=== PATIENT | male | born 1970 | race African-American/Black ===

== ENCOUNTER 2019-11-10 03:00 | Observation (INO) ==
[2019-11-10] MEDS ORDERED: ALUM/MAG/SIMETH/LIDO VISC 1:1 30 ML BOTTLE PO STA (03:15)
[2019-11-10] MEDS ORDERED: PANTOPRAZOLE 40 MG VIAL IV STA (03:15)
[2019-11-10] MEDS ORDERED: ONDANSETRON 4 MG/2 ML VIAL IV STA (03:15)
[2019-11-10] MEDS ORDERED: SODIUM CHLORIDE 0.9% 1,000 ML IV STA (03:15)
[2019-11-10] MEDS ORDERED: MORPHINE 4 MG/1 ML VIAL IV STA (03:15)
[2019-11-10] MEDS ORDERED: DILTIAZEM 50 MG/10 ML VIAL IV STA (03:15)
[2019-11-10] MEDS ORDERED: NITROGLYCERIN 2% OINT 1 INCH/GM PACK TOP STA (03:15)
[2019-11-10 03:28] LABS: Basophils % 0.3 % (0.0-0.8); Eosinophils % 0.1 % (0.00-10.9); Hematocrit 44.6 VOL% (42.0-52.0); Hemoglobin 14.9 GM/DL (14.0-18.0); Immature Granulocytes % 0.4 %; Immature Granulocytes Absolute 0.04 #; Lymphocytes # 3.2 10*3/uL (1.4-4.0); Mean Corpuscular HGB Conc 33.4 GM/DL (32-36); Mean Corpuscular Volume 90.7 FL (87-102); Mean Platelet Volume 10.6 FL (9.6-12.0); Monocytes % 6.3 % (1.7-12.7); Neutrophils % 61.9 % (38.7-73.9); Platelet Count 342 T/CUMM (130-400); Red Blood Count 4.92 MC/CUMM (3.8-5.5); Red Cell Distribution Width 12.9 % (9.3-17.3); White Blood Count 10.3 T/CUMM (4-12)
[2019-11-10] MEDS ORDERED: INSULIN REGULAR 100 UNIT/ML IV STA (03:42)
[2019-11-10 03:52] LABS: Alanine Aminotransferase 16 U/L (16-61); Albumin 4.4 G/DL (3.4-5.0); Alkaline Phosphatase 73 U/L (45-117); Amylase 140 U/L (25-115); Aspartate Amino Transferase 10 U/L (0-37); Blood Urea Nitrogen 24 MG/DL (7-18); Calcium 10.2 MG/DL (8.5-10.1); Estimated Glom Filtration Rate 71 ML/MIN; Osmolality,Calculated 283.2 MOS/KG (273-304); Total Protein 8.7 G/DL (6.4-8.3)
[2019-11-10 03:53] LABS: Glucose 549 MG/DL (74-106)
[2019-11-10 03:59] LABS: ABG Base Excess -7.3 MMOL/L (-2.5-2.5); ABG HCO3 18.6 MMOL/L (20-26); ABG Oxygen Saturation 97.7 % (95-100); ABG PCO2 27.1 MM HG (35-48); ABG PH 7.386 (7.35-7.45); Pt O2 Delivery Device Room Air
[2019-11-10 04:15] LABS: Apearance,Urine CLEAR (Clear); Bacteria,Urine Occasional /HPF (Few); Bilirubin,Urine Negative (Negative); Blood, Urine Negative (Negative); Glucose,Urine (UA) >=500 mg/dL (Negative); Ketones,Urine 80 mg/dL (Negative); Mucus,Urine Occasional /LPF (Occasional); Nitrite,Urine Negative (Negative); Protein,Urine Negative; RBC,Urine 1 /HPF (0-4); Squamous Epithelial Cell,Urine Occasional /HPF (0-10); Urine Color Colorless (Yellow); Urine Specific Gravity 1.024 (1.001-1.035); Urine Urobilinogen < 2.0 EU/DL (0.2-1.0); WBC,Urine <1 /HPF (0-6)
[2019-11-10 04:32] LABS: Barbiturates Screen,Urine Negative (Negative); Benzodiazepines Screen,Urine Negative (Negative); Cannabinoid Screen,Urine Positive (Negative); Opiate Screen,Urine Negative (Negative); Phencyclidine Screen,Urine Negative (Negative)
[2019-11-10] MEDS ORDERED: ACETAMINOPHEN 325 MG TABLET PO PRN (06:29)
[2019-11-10] MEDS ORDERED: GLUCAGON 1 MG VIAL IM PRN (06:29)
[2019-11-10] MEDS ORDERED: DEXTROSE 50% 25 GM/50 ML VIAL IV PRN (06:29)
[2019-11-10] MEDS ORDERED: ONDANSETRON 4 MG/2 ML VIAL IV PRN (06:29)
[2019-11-10] MEDS ORDERED: DOCUSATE SODIUM 100 MG CAPSULE PO PRN (06:29)
[2019-11-10] MEDS ORDERED: SODIUM CHLORIDE 0.45% 1,000 ML IV SCH (06:30)
[2019-11-10] MEDS: SODIUM CHLORIDE 0.9% 1,000 ML IV SCH ×2 (06:34→18:11)
[2019-11-10] MEDS: ASPIRIN 325 MG TABLET PO SCH (08:30)
[2019-11-10] MEDS: LISINOPRIL/HCTZ 20-25 MG TABLET PO SCH (08:30)
[2019-11-10] MEDS: SERTRALINE 50 MG TABLET PO SCH (08:30)
[2019-11-10] MEDS: INSULIN REGULAR 100 UNIT/ML SUBCUT SCH ×4 (08:31→20:48)
[2019-11-10] MEDS: ENOXAPARIN 40 MG/0.4 ML SYRINGE SUBCUT SCH (09:25)
[2019-11-10 10:06] LABS: Risk Ratio 4.83; VLDL CHOLESTEROL 73.8 MG/DL
[2019-11-10] MEDS ORDERED: ALUMINUM/MAGNES/SIMETH MAX STR 30 ML UDCUP PO PRN (12:46)
[2019-11-10] MEDS ORDERED: diphenhydrAMINE CAP 25 MG CAPSULE PO PRN (12:46)
[2019-11-10] MEDS ORDERED: LACTULOSE 20 GM/30 ML UDCUP PO PRN (12:46)
[2019-11-10] MEDS ORDERED: guaiFENesin/DM ER 600-30 MG TABLET PO PRN (12:46)
[2019-11-10] MEDS ORDERED: NICOTINE 21 MG/24 HR PATCH TRANSDERM PRN (12:46)
[2019-11-10] MEDS ORDERED: ZALEPLON 5 MG CAPSULE PO PRN (12:46)
[2019-11-10] MEDS ORDERED: SIMETHICONE CHEW 125 MG TABLET PO PRN (12:46)
[2019-11-10] MEDS ORDERED: traZODone 50 MG TABLET PO PRN (12:46)
[2019-11-10] MEDS ORDERED: BISACODYL 5 MG TABLET PO PRN (12:46)
[2019-11-10] MEDS ORDERED: hydrALAZINE 20 MG/1 ML VIAL IV PRN (12:46)
[2019-11-10] MEDS ORDERED: metFORMIN 500 MG TABLET PO SCH (19:00)
[2019-11-10] MEDS: PANTOPRAZOLE 40 MG TABLET PO SCH (20:43)
[2019-11-10] MEDS ORDERED: ATORVASTATIN 20 MG TABLET PO SCH (21:00)
[2019-11-10] MEDS ORDERED: ATORVASTATIN 40 MG TABLET PO SCH (21:00)
[2019-11-10] MEDS ORDERED: EZETIMIBE 10 MG TABLET PO SCH (21:00)
[2019-11-10] MEDS ORDERED: INSULIN GLARGINE 100 UNIT/ML SUBCUT SCH (21:00)
[2019-11-10] MEDS ORDERED: amLODIPine 5 MG TABLET PO SCH (21:00)
[2019-11-10] MEDS ORDERED: COENZYME Q10 100 MG CAPSULE PO SCH (21:00)
[2019-11-11 04:09] LABS: Basophils % 0.3 % (0.0-0.8); Eosinophils # 0.1 10*3/uL (0.0-0.87); Eosinophils % 1.4 % (0.00-10.9); Hematocrit 36.7 VOL% (42.0-52.0); Hemoglobin 12.5 GM/DL (14.0-18.0); Immature Granulocytes % 0.5 %; Immature Granulocytes Absolute 0.03 #; Lymphocytes # 2.2 10*3/uL (1.4-4.0); Lymphocytes % 33.1 % (21.2-54.2); Mean Corpuscular HGB Conc 34.1 GM/DL (32-36); Mean Platelet Volume 10.6 FL (9.6-12.0); Monocytes % 9.1 % (1.7-12.7); Neutrophils % 55.6 % (38.7-73.9); Platelet Count 233 T/CUMM (130-400); Red Blood Count 4.17 MC/CUMM (3.8-5.5); Red Cell Distribution Width 12.7 % (9.3-17.3); White Blood Count 6.5 T/CUMM (4-12)
[2019-11-11] MEDS: SODIUM CHLORIDE 0.9% 1,000 ML IV SCH (04:13)
[2019-11-11 04:53] LABS: Calcium 8.5 MG/DL (8.5-10.1); Osmolality,Calculated 274.4 MOS/KG (273-304)
[2019-11-11] MEDS: ENOXAPARIN 40 MG/0.4 ML SYRINGE SUBCUT SCH (06:05)
[2019-11-11] MEDS ORDERED: POTASSIUM CHLORIDE RIDER 10 MEQ in PREMIX 1 EACH IV ONE (07:34)
[2019-11-11] MEDS: ASPIRIN 325 MG TABLET PO SCH (10:14)
[2019-11-11] MEDS: INSULIN REGULAR 100 UNIT/ML SUBCUT SCH ×2 (10:15→12:26)
[2019-11-11] MEDS: SERTRALINE 50 MG TABLET PO SCH (10:15)
[2019-11-11] MEDS: LISINOPRIL/HCTZ 20-25 MG TABLET PO SCH (10:15)
[2019-11-11] MEDS: PANTOPRAZOLE 40 MG TABLET PO SCH (10:15)
[2019-11-11] MEDS ORDERED: POTASSIUM CHLORIDE 20 MEQ TABLET PO ONE (10:43)
[2019-11-11] MEDS ORDERED: ASPIRIN EC 325 MG TABLET PO SCH (11:00)
[2019-11-11] MEDS ORDERED: BISACODYL 5 MG TABLET PO ONE (12:15)
[2019-11-11] MEDS ORDERED: MAGNESIUM HYDROXIDE SUSP 30 ML UDCUP PO ONE (12:15)
[2019-11-11] MEDS ORDERED: ACETAMINOPHEN 325 MG TABLET PO ONE (12:15)
[2019-11-11 13:29] VITALS: BP 111/75
[2019-11-11] MEDS ORDERED: INSULIN ASPART PROTAMINE/ASPART 70/30 100 UNIT/ML SUBCUT SCH (16:30)
[2019-11-11] MEDS ORDERED: SIMVASTATIN 10 MG TABLET PO SCH (21:00)
== END 2019-11-11 16:39 | disposition home or self-care (01) ==
LOC: N.EDINP 03:00 → N.ED 03:00 → N.TELEN 08:15
PROVIDERS: ADMIT Hospitalist; ATTEND Hospitalist

== ENCOUNTER 2020-02-25 11:43 | Inpatient (IN) ==
[2020-02-25] MEDS ORDERED: SODIUM CHLORIDE 0.9% 1,000 ML IV STA (12:55)
[2020-02-25 13:01] LABS: Basophils % 0.6 % (0.0-0.8); Eosinophils # 0.1 10*3/uL (0.0-0.87); Eosinophils % 0.8 % (0.00-10.9); Hematocrit 43.5 VOL% (42.0-52.0); Hemoglobin 14.9 GM/DL (14.0-18.0); Immature Granulocytes % 0.6 %; Immature Granulocytes Absolute 0.04 #; Lymphocytes # 1.7 10*3/uL (1.4-4.0); Lymphocytes % 25.7 % (21.2-54.2); Mean Corpuscular HGB Conc 34.3 GM/DL (32-36); Mean Corpuscular Volume 86.8 FL (87-102); Mean Platelet Volume 10.5 FL (9.6-12.0); Monocytes % 6.8 % (1.7-12.7); Neutrophils % 65.5 % (38.7-73.9); Platelet Count 317 T/CUMM (130-400); Red Blood Count 5.01 MC/CUMM (3.8-5.5); Red Cell Distribution Width 13.2 % (9.3-17.3); White Blood Count 6.5 T/CUMM (4-12)
[2020-02-25 13:22] LABS: ABG Base Excess -8.8 MMOL/L (-2.5-2.5); ABG HCO3 17.5 MMOL/L (20-26); ABG Oxygen Saturation 98.1 % (95-100); ABG PCO2 28.1 MM HG (35-48); ABG PH 7.349 (7.35-7.45); ABG TCO2 13.5 MMOL/L (23-27)
[2020-02-25 13:25] LABS: Albumin 4.1 G/DL (3.4-5.0); Bilirubin,Total 0.7 MG/DL (0.2-1.0); Calcium 9.5 MG/DL (8.5-10.1); Osmolality,Calculated 272.9 MOS/KG (273-304)
[2020-02-25] MEDS ORDERED: ASPIRIN CHEW 81 MG TABLET PO STA (13:43)
[2020-02-25] MEDS ORDERED: ENOXAPARIN 30 MG/0.3 ML SYRINGE SUBCUT STA (13:54)
[2020-02-25 14:39] LABS: Bilirubin,Urine Negative (Negative); Blood, Urine Negative (Negative); Glucose,Urine (UA) >=500 mg/dL (Negative); Ketones,Urine 80 mg/dL (Negative); Mucus,Urine Occasional /LPF (Occasional); Nitrite,Urine Negative (Negative); Protein,Urine Negative; RBC,Urine 1 /HPF (0-4); Urine Appearance CLEAR (Clear); Urine Color Straw (Yellow); Urine Specific Gravity 1.017 (1.001-1.035); Urine Urobilinogen < 2.0 EU/DL (0.2-1.0); WBC,Urine 1 /HPF (0-6)
[2020-02-25] MEDS ORDERED: DEXTROSE 50% 25 GM/50 ML VIAL IV PRN ×4 (14:40→18:51)
[2020-02-25] MEDS ORDERED: INSULIN REGULAR 100 UNIT/ML IV ONE (14:40)
[2020-02-25] MEDS ORDERED: MAGNESIUM SULF RIDER 2 GM in PREMIX 1 EACH IV PRN (15:22)
[2020-02-25] MEDS ORDERED: MAGNESIUM SULF RIDER 4 GM in PREMIX 1 EACH IV PRN (15:22)
[2020-02-25] MEDS ORDERED: POTASSIUM CHLORIDE RIDER 10 MEQ in PREMIX 1 EACH IV PRN (15:22)
[2020-02-25] MEDS ORDERED: SODIUM CHLORIDE 0.9% 1,000 ML IV ONE ×2 (15:36→19:25)
[2020-02-25] MEDS ORDERED: GLUCAGON 1 MG VIAL IM PRN ×2 (15:37→18:51)
[2020-02-25] MEDS ORDERED: ALBUTEROL/IPRATROPIUM 3 ML NEB RESP TX PRN (15:37)
[2020-02-25] MEDS ORDERED: ONDANSETRON 4 MG/2 ML VIAL IV PRN (15:37)
[2020-02-25] MEDS ORDERED: ACETAMINOPHEN 325 MG TABLET PO PRN (15:37)
[2020-02-25] MEDS ORDERED: SODIUM CHLORIDE 0.9% 1,000 ML IV SCH ×3 (15:40→20:15)
[2020-02-25 18:38] LABS: Calcium 8.6 MG/DL (8.5-10.1); Osmolality,Calculated 273.8 MOS/KG (273-304)
[2020-02-25 18:41] LABS: Troponin I < 0.015 NG/ML (0.00-0.045)
[2020-02-25] MEDS: ATORVASTATIN 20 MG TABLET PO SCH (20:23)
[2020-02-25] MEDS: INSULIN REGULAR 100 UNIT/ML SUBCUT SCH (20:23)
[2020-02-25] MEDS: COENZYME Q10 100 MG CAPSULE PO SCH (20:23)
[2020-02-25] MEDS: COLESTIPOL 1 GM TABLET PO SCH (20:23)
[2020-02-25 20:41] LABS: Troponin I < 0.015 NG/ML (0.00-0.045)
[2020-02-25] MEDS ORDERED: amLODIPine 5 MG TABLET PO SCH (21:00)
[2020-02-25 21:47] LABS: Calcium 8.3 MG/DL (8.5-10.1); Osmolality,Calculated 273.9 MOS/KG (273-304)
[2020-02-26] MEDS: SODIUM CHLORIDE 0.45% 1,000 ML IV SCH ×3 (00:15→17:53)
[2020-02-26 04:48] LABS: ABG Base Excess 0.4 MMOL/L (-2.5-2.5); ABG HCO3 23.9 MMOL/L (20-26); ABG PH 7.453 (7.35-7.45); ABG PO2 82.8 MM HG (80-95); Allen Test Positive; Pt O2 Delivery Device Room Air
[2020-02-26 06:47] LABS: Risk Ratio 3.33; VLDL CHOLESTEROL 47.4 MG/DL
[2020-02-26 06:49] LABS: Basophils % 0.8 % (0.0-0.8); Eosinophils # 0.2 10*3/uL (0.0-0.87); Eosinophils % 3.4 % (0.00-10.9); Hematocrit 36.1 VOL% (42.0-52.0); Hemoglobin 12.4 GM/DL (14.0-18.0); Immature Granulocytes % 0.4 %; Immature Granulocytes Absolute 0.02 #; Lymphocytes # 1.7 10*3/uL (1.4-4.0); Lymphocytes % 34.3 % (21.2-54.2); Mean Corpuscular HGB Conc 34.3 GM/DL (32-36); Mean Corpuscular Volume 87.2 FL (87-102); Mean Platelet Volume 10.6 FL (9.6-12.0); Monocytes % 9.6 % (1.7-12.7); Neutrophils % 51.5 % (38.7-73.9); Platelet Count 227 T/CUMM (130-400); Red Blood Count 4.14 MC/CUMM (3.8-5.5); Red Cell Distribution Width 13.1 % (9.3-17.3)
[2020-02-26 06:51] LABS: Total Cells Counted 0
[2020-02-26 06:55] LABS: Albumin 3.1 G/DL (3.4-5.0); Bilirubin,Direct 0.12 MG/DL (0.0-0.20); Bilirubin,Indirect 0.6 MG/DL (0.0-1.0); Bilirubin,Total 0.7 MG/DL (0.2-1.0); Thyroid Stimulating Hormone 0.732 uIU/ml (0.358-3.74); Total Protein 6.4 G/DL (6.4-8.3)
[2020-02-26 07:39] LABS: HIV Antigen/Antibody Result Nonreactive (Nonreactive)
[2020-02-26 08:12] LABS: Calcium 8.3 MG/DL (8.5-10.1)
[2020-02-26] MEDS: INSULIN REGULAR 100 UNIT/ML SUBCUT SCH ×4 (08:38→20:43)
[2020-02-26] MEDS ORDERED: POTASSIUM CHLORIDE 20 MEQ TABLET PO ONE (09:27)
[2020-02-26] MEDS: ASPIRIN EC 325 MG TABLET PO SCH (09:34)
[2020-02-26] MEDS: SERTRALINE 50 MG TABLET PO SCH (09:34)
[2020-02-26] MEDS: PANTOPRAZOLE 40 MG TABLET PO SCH (09:34)
[2020-02-26] MEDS: ENOXAPARIN 40 MG/0.4 ML SYRINGE SUBCUT SCH (09:34)
[2020-02-26] MEDS: COLESTIPOL 1 GM TABLET PO SCH ×2 (09:37→20:43)
[2020-02-26] MEDS: POLYETHYLENE GLYCOL POWDER 17 GM PACK PO SCH (15:00)
[2020-02-26] MEDS: COENZYME Q10 100 MG CAPSULE PO SCH (20:30)
[2020-02-26] MEDS: ATORVASTATIN 20 MG TABLET PO SCH (20:43)
[2020-02-27] MEDS: SODIUM CHLORIDE 0.45% 1,000 ML IV SCH ×2 (01:59→09:51)
[2020-02-27 05:54] LABS: Basophils % 0.9 % (0.0-0.8); Eosinophils # 0.2 10*3/uL (0.0-0.87); Eosinophils % 3.7 % (0.00-10.9); Hematocrit 34.6 VOL% (42.0-52.0); Lymphocytes # 1.8 10*3/uL (1.4-4.0); Lymphocytes % 42.7 % (21.2-54.2); Mean Corpuscular HGB Conc 34.7 GM/DL (32-36); Mean Corpuscular Volume 85.9 FL (87-102); Mean Platelet Volume 10.5 FL (9.6-12.0); Monocytes % 8.4 % (1.7-12.7); Neutrophils % 44.3 % (38.7-73.9); Platelet Count 223 T/CUMM (130-400); Red Blood Count 4.03 MC/CUMM (3.8-5.5); Red Cell Distribution Width 12.7 % (9.3-17.3); White Blood Count 4.3 T/CUMM (4-12)
[2020-02-27 05:58] LABS: Calcium 8.4 MG/DL (8.5-10.1)
[2020-02-27] MEDS: INSULIN REGULAR 100 UNIT/ML SUBCUT SCH ×2 (08:16→12:25)
[2020-02-27] MEDS: PANTOPRAZOLE 40 MG TABLET PO SCH (08:47)
[2020-02-27] MEDS: SERTRALINE 50 MG TABLET PO SCH (08:47)
[2020-02-27] MEDS: ASPIRIN EC 325 MG TABLET PO SCH (08:47)
[2020-02-27] MEDS: ENOXAPARIN 40 MG/0.4 ML SYRINGE SUBCUT SCH (08:47)
[2020-02-27] MEDS: POLYETHYLENE GLYCOL POWDER 17 GM PACK PO SCH (08:48)
[2020-02-27] MEDS: COLESTIPOL 1 GM TABLET PO SCH (08:48)
[2020-02-27] MEDS: POTASSIUM CHLORIDE 20 MEQ TABLET PO PRN ×3 (10:51→14:53)
[2020-02-27 13:06] VITALS: BP 105/70
== END 2020-02-27 16:52 | disposition home or self-care (01) | DRG 638 ==
LOC: N.ED 11:43 → N.EDINP 14:39 → SUATTDRO 14:39 → N.EDINP 16:47 → N.3E 16:53
PROVIDERS: ADMIT Internal Medicine; ATTEND Internal Medicine Geriatric Medicine

== ENCOUNTER 2020-03-13 11:20 | Inpatient (IN) ==
[2020-03-13 13:16] LABS: Basophils % 0.6 % (0.0-0.8); Eosinophils # 0.1 10*3/uL (0.0-0.87); Hematocrit 40.1 VOL% (42.0-52.0); Hemoglobin 13.8 GM/DL (14.0-18.0); Immature Granulocytes % 0.6 %; Immature Granulocytes Absolute 0.03 #; Lymphocytes % 39.1 % (21.2-54.2); Mean Corpuscular HGB Conc 34.4 GM/DL (32-36); Mean Corpuscular Volume 86.4 FL (87-102); Mean Platelet Volume 10.1 FL (9.6-12.0); Monocytes % 6.6 % (1.7-12.7); NRBC # 0.02 10*3/uL; Neutrophils % 52.1 % (38.7-73.9); Platelet Count 301 T/CUMM (130-400); Red Blood Count 4.64 MC/CUMM (3.8-5.5); Red Cell Distribution Width 13.9 % (9.3-17.3); White Blood Count 5.2 T/CUMM (4-12)
[2020-03-13] MEDS ORDERED: FAMOTIDINE 20 MG/2 ML VIAL IV STA (13:17)
[2020-03-13] MEDS ORDERED: SODIUM CHLORIDE 0.9% 1,000 ML IV STA (13:17)
[2020-03-13] MEDS ORDERED: diphenhydrAMINE 50 MG/1 ML VIAL IV STA (13:17)
[2020-03-13 13:34] LABS: Albumin 3.9 G/DL (3.4-5.0); Bilirubin,Total 0.5 MG/DL (0.2-1.0); Calcium 8.8 MG/DL (8.5-10.1); Osmolality,Calculated 270.6 MOS/KG (273-304); Total Protein 8.4 G/DL (6.4-8.3)
[2020-03-13] MEDS ORDERED: INSULIN REGULAR 100 UNIT/ML ONE (14:22)
[2020-03-13] MEDS ORDERED: INSULIN REGULAR 100 UNIT/ML IV STA (14:25)
[2020-03-13 14:35] LABS: Bacteria,Urine Occasional /HPF (Few); Bilirubin,Urine Negative (Negative); Blood, Urine Negative (Negative); Glucose,Urine (UA) >=500 mg/dL (Negative); Granular Casts,Urine 5 /LPF (0-1); Ketones,Urine 80 mg/dL (Negative); Mucus,Urine Occasional /LPF (Occasional); Nitrite,Urine Negative (Negative); Protein,Urine Negative; RBC,Urine 2 /HPF (0-4); Squamous Epithelial Cell,Urine Occasional /HPF (0-10); Urine Appearance CLEAR (Clear); Urine Color Yellow (Yellow); Urine Specific Gravity 1.022 (1.001-1.035); Urine Urobilinogen < 2.0 EU/DL (0.2-1.0); WBC,Urine 1 /HPF (0-6)
[2020-03-13] MEDS ORDERED: LACTATED RINGERS 2,000 ML IV ONE (15:14)
[2020-03-13] MEDS ORDERED: DEXTROSE 50% 25 GM/50 ML VIAL IV PRN (15:17)
[2020-03-13] MEDS ORDERED: GLUCAGON 1 MG VIAL IM PRN (15:17)
[2020-03-13] MEDS ORDERED: NIFEdipine 10 MG CAPSULE PO PRN (15:18)
[2020-03-13] MEDS ORDERED: ALBUTEROL 2.5 MG/3 ML NEB RESP TX PRN (15:18)
[2020-03-13] MEDS: PANTOPRAZOLE 40 MG TABLET PO SCH (17:50)
[2020-03-13] MEDS ORDERED: INFLUENZA VIRUS VACCINE 0.5 ML SYRINGE IM ONE (17:51)
[2020-03-13] MEDS: INSULIN NPH/REGULAR 70/30 100 UNIT/ML SUBCUT SCH (17:51)
[2020-03-13] MEDS: ENOXAPARIN 40 MG/0.4 ML SYRINGE SUBCUT SCH (17:52)
[2020-03-13] MEDS: INSULIN REGULAR 100 UNIT/ML SUBCUT SCH ×2 (17:57→21:32)
[2020-03-13] MEDS: DEXTROSE 5% NACL 0.45% 1,000 ML IV SCH (19:53)
[2020-03-13] MEDS: ATORVASTATIN 20 MG TABLET PO SCH (21:32)
[2020-03-14] MEDS: INSULIN REGULAR 100 UNIT/ML SUBCUT SCH ×5 (01:33→21:50)
[2020-03-14] MEDS: DEXTROSE 5% NACL 0.45% 1,000 ML IV SCH ×2 (03:52→05:40)
[2020-03-14 04:12] LABS: Basophils % 1.1 % (0.0-0.8); Eosinophils # 0.1 10*3/uL (0.0-0.87); Eosinophils % 3.4 % (0.00-10.9); Hematocrit 33.8 VOL% (42.0-52.0); Hemoglobin 12.1 GM/DL (14.0-18.0); Immature Granulocytes % 0.8 %; Immature Granulocytes Absolute 0.03 #; Lymphocytes # 1.6 10*3/uL (1.4-4.0); Lymphocytes % 45.7 % (21.2-54.2); Mean Corpuscular HGB Conc 35.8 GM/DL (32-36); Mean Corpuscular Volume 84.3 FL (87-102); Mean Platelet Volume 9.8 FL (9.6-12.0); Monocytes % 8.1 % (1.7-12.7); Neutrophils % 40.9 % (38.7-73.9); Platelet Count 229 T/CUMM (130-400); Red Blood Count 4.01 MC/CUMM (3.8-5.5); Red Cell Distribution Width 13.5 % (9.3-17.3); White Blood Count 3.6 T/CUMM (4-12)
[2020-03-14 04:41] LABS: Blood Urea Nitrogen 10 MG/DL (7-18); Calcium 8.7 MG/DL (8.5-10.1); Estimated Glom Filtration Rate 103 ML/MIN; Glucose 200 MG/DL (74-106); Osmolality,Calculated 272.2 MOS/KG (273-304); Troponin I < 0.015 NG/ML (0.00-0.045)
[2020-03-14] MEDS ORDERED: POTASSIUM CHLORIDE 20 MEQ TABLET PO ONE (05:23)
[2020-03-14] MEDS ORDERED: INSULIN REGULAR 100 UNIT/ML SUBCUT SCH (08:00)
[2020-03-14] MEDS: ASPIRIN EC 325 MG TABLET PO SCH (08:38)
[2020-03-14] MEDS: INSULIN NPH/REGULAR 70/30 100 UNIT/ML SUBCUT SCH ×2 (08:39→17:40)
[2020-03-14] MEDS: PANTOPRAZOLE 40 MG TABLET PO SCH ×2 (08:39→20:57)
[2020-03-14] MEDS: POTASSIUM CHLORIDE 20 MEQ TABLET PO SCH ×3 (10:12→17:39)
[2020-03-14] MEDS: ENOXAPARIN 40 MG/0.4 ML SYRINGE SUBCUT SCH (17:43)
[2020-03-14] MEDS: ATORVASTATIN 20 MG TABLET PO SCH (20:57)
[2020-03-15 06:07] LABS: Eosinophils # 0.1 10*3/uL (0.0-0.87); Eosinophils % 2.5 % (0.00-10.9); Hematocrit 32.2 VOL% (42.0-52.0); Hemoglobin 11.2 GM/DL (14.0-18.0); Immature Granulocytes % 0.8 %; Immature Granulocytes Absolute 0.03 #; Lymphocytes # 1.4 10*3/uL (1.4-4.0); Lymphocytes % 35.6 % (21.2-54.2); Mean Corpuscular HGB Conc 34.8 GM/DL (32-36); Mean Corpuscular Volume 85.9 FL (87-102); Mean Platelet Volume 10.8 FL (9.6-12.0); Monocytes % 10.2 % (1.7-12.7); Neutrophils % 49.9 % (38.7-73.9); Platelet Count 230 T/CUMM (130-400); Red Blood Count 3.75 MC/CUMM (3.8-5.5); Red Cell Distribution Width 13.4 % (9.3-17.3); White Blood Count 3.9 T/CUMM (4-12)
[2020-03-15 06:25] LABS: Calcium 8.8 MG/DL (8.5-10.1); Osmolality,Calculated 277.5 MOS/KG (273-304)
[2020-03-15 07:23] VITALS: BP 119/80
[2020-03-15] MEDS: INSULIN NPH/REGULAR 70/30 100 UNIT/ML SUBCUT SCH (08:04)
[2020-03-15] MEDS: ASPIRIN EC 325 MG TABLET PO SCH (08:05)
[2020-03-15] MEDS: INSULIN REGULAR 100 UNIT/ML SUBCUT SCH (08:05)
[2020-03-15] MEDS: PANTOPRAZOLE 40 MG TABLET PO SCH (08:05)
[2020-03-15] MEDS ORDERED: SERTRALINE 50 MG TABLET PO SCH (09:00)
[2020-03-15] MEDS ORDERED: POTASSIUM CHLORIDE 20 MEQ TABLET PO ONE (10:00)
== END 2020-03-15 13:02 | disposition home or self-care (01) | DRG 915 ==
LOC: N.ED 11:20 → N.EDINP 15:09 → SUATTDRO 15:09 → N.ICU 17:15 → N.5E 03-14 10:30
PROVIDERS: ADMIT Internal Medicine; ATTEND Internal Medicine